=== PATIENT | female | born 1960 | race Caucasian/White ===

== ENCOUNTER 2020-06-25 09:45 | Outpatient (RCR) | payer BC ==
[2021-03-03] MEDS ORDERED: WELLBUTRIN SR150 M1 PO (16:05)
[2021-03-03] MEDS ORDERED: FOSAMAX 70MG TA70 MG PO (16:06)
== END 2020-09-11 | disposition home or self-care (01) ==
LOC: WSST
DX: C32.1 Malignant neoplasm of supraglottis (principal)

== ENCOUNTER → 2021-03-06 | Outpatient (CLI) | payer BC ==
[2021-03-06] VITALS (11 sets, daily range): BP systolic 104–150; BP diastolic 73–86; PULSE 83–90; TEMP 98.3
[~2021-03-06] VITALS: Ht 157.5 cm; Wt 55.6 kg
[~2021-03-06] MED LIST: FOSAMAX 70MG TA70 MG PO; WELLBUTRIN SR150 M1 PO
--- NOTE | 2021-03-06 14:20 | NUR ---
Pt to ct per ambulation. Pt on table in prone postion, monitors applied.
--- NOTE | 2021-03-06 14:48 | NUR ---
Dr Hermosillo obtains specimen and places in formalin. Specimen labeled.
== END ==
LOC: COL.RAD 13:00
DX: C32.1 Malignant neoplasm of supraglottis (principal)

== ENCOUNTER 2023-12-26 18:50 | Inpatient (IN) | payer MEDICARE, MEDICAID ==
[~2023-12-26] VITALS: Ht 157.5 cm; Wt 52.3 kg
--- NOTE | 2023-12-26 | NUR ---
Patient to room 317 via stretcher from ED. Oriented to room and policy. Admission assessment complete. VS stable. Patient is very drowsy but oriented. Noted to be 89% on RA-O2 applied @2L/NC with O2 sats to 94%. Left Wrist INT flushes without difficulty-LR@125ml/hr infusing without difficulty. Nicotine patch to left arm. Fentanyl patch to abdomen. Plan of care discussed for this shift to include meds/pain control/calling for questions/concerns. Verbalizes understanding. Call light in reach. Bed alarm on. WIll monitor.
[~2023-12-26 18:50] MED LIST changes: +BENADRYL25 M2 PO; +MAGNESIUM200 MG PO; +OSCAL 500 TAB500 MG PO; +PROAIR HFA0.09 MG/AC IH; +TUMERIC PO; +VITAMIN B COMPL1 T16 PO; +VITAMIN C500 MG PO; +VITAMIN K PO; +WELLBUTRIN XL150 MG PO
[2023-12-26] MEDS ORDERED: NS 500 ML IV ONE ×2 (19:30→20:45)
[2023-12-26] MEDS ORDERED: Acetaminophen 325 MG TAB PO ONE (19:30)
[2023-12-26 19:58] LABS: BASO % 0.2 % (0.0-2.0); EOS % 0.1 % (0.0-4.0); GRAN # 12.9 K/mm3 (1.4-6.5); GRAN % 74.7 % (42.2-75.2); LYMPH # 2.9 K/mm3 (1.2-3.4); LYMPH % 16.8 % (20.0-51.0); MEAN CELL VOLUME 100 fl (80.0-100.0); MEAN CORPUSCULAR HGB CONC 33 g/dl (33.0-37.0); MEAN PLATELET VOLUME 8.9 fl (7.4-10.4); MONO # 1.3 K/mm3 (0.1-0.6); MONO % 7.2 % (1.7-9.3); PLATELET COUNT 313 K/mm3 (130-400); REDCELL DISTRIBUTION WIDTH-CV 14.7 % (11.5-14.5)
[2023-12-26 19:59] LABS: HEMATOCRIT 27.1 % (37.0-47.0); HEMOGLOBIN 8.8 g/dl (12.5-16.0); MEAN CORPUSCULAR HEMOGLOBIN 33 pg (27-31)
[2023-12-26 20:14] LABS: ALANINE AMINOTRANSFERASE 18 U/L (0-55); ALBUMIN 3.1 g/dL (3.4-4.8); ALKALINE PHOSPHATASE 104 U/L (40-150); ANION GAP 10 mmol/L (7-16); AST,SGOT 44 U/L (5-34); BILIRUBIN,TOTAL 0.6 mg/dL (0.2-1.2); BLOOD UREA NITROGEN 12 mg/dL (10-20); C-REACTIVE PROTEIN 9.59 mg/dL (0.00-0.50); CHLORIDE 97 mEq/L (98-107); CREATININE, serum 0.72 mg/dL (0.57-1.11); GLUCOSE 132 mg/dL (70-99); POTASSIUM 4.2 mEq/L (3.5-4.5); SODIUM 130 mEq/L (136-145); TOTAL PROTEIN 6.7 g/dl (6.2-8.1)
[2023-12-26 20:22] LABS: TROPONIN-I < 0.010 ng/mL (0.00-0.033)
[2023-12-26 20:33] LABS: COLLECTION METHOD CLEAN CATCH
[2023-12-26 20:52] LABS: PH 6.5 (5.0-8.5); URINE APPEARANCE Cloudy (CLEAR/HAZY); URINE COLOR Amber (YELLOW); URINE PROTEIN(semi-quant) TRACE (NEGATIVE)
[2023-12-26 20:53] LABS: URINE BLOOD Negative (NEGATIVE); URINE GLUCOSE Negative (NEGATIVE); URINE KETONE 1+ (NEGATIVE); URINE NITRATE Negative (NEGATIVE)
--- NOTE | 2023-12-26 21:57 | NUR ---
Patient refused shower/teeth brush at HS.
[2023-12-26] MEDS ORDERED: LR 1,000 ML IV SCH (22:00)
[2023-12-26] MEDS ORDERED: Acetaminophen 325 MG TAB PO PRN (22:00)
[2023-12-26] MEDS ORDERED: FENTANYL 75MCG TD (22:14)
[2023-12-26] MEDS ORDERED: DAZIDOX10 MG PO (22:14)
[2023-12-26] MEDS ORDERED: ATIVAN 0.50.5 MG/TAB PO (22:15)
[2023-12-26] MEDS ORDERED: DAPSONE 100MG100 MG PO (22:15)
[2023-12-26] MEDS ORDERED: PROTONIX 40MG T40 MG PO (22:16)
[2023-12-26] MEDS ORDERED: ZOVIRAX800 MG PO (22:16)
[2023-12-26] MEDS ORDERED: LASIX 20MG TABL20 MG PO (22:18)
[2023-12-26] MEDS ORDERED: SYNTHROID0.088 MG/T PO (22:18)
[2023-12-26] MEDS ORDERED: CYMBALTA 60MG60 MG PO (22:19)
[2023-12-26] MEDS ORDERED: NICODERM C21 MG/PATC TD (22:20)
[2023-12-26] MEDS ORDERED: PROAIR HFA0.09 MG/AC IH (22:20)
[2023-12-26] MEDS ORDERED: 00186-0370-20 IH (22:21)
[2023-12-26] MEDS ORDERED: Albuterol 0.083% Neb Soln 2.5 MG/3 ML UD IH PRN ×2 (22:30)
[2023-12-26] MEDS ORDERED: diphenhydrAMINE 25 MG CAP PO PRN (22:30)
[2023-12-26] MEDS ORDERED: oxyCODONE 5 MG TAB PO PRN (22:30)
[2023-12-26] MEDS ORDERED: LORazepam 0.5 MG TAB PO PRN (22:30)
[2023-12-26] MEDS ORDERED: Iohexol 350 - 100 ML VIAL IV ONE (23:43)
[2023-12-26] MEDS ORDERED: NS 64 ML IV SCH (23:43)
[2023-12-27] VITALS (9 sets, daily range): BP systolic 90–101; BP diastolic 51–70; PULSE 62–100; TEMP 98–98.2
[2023-12-27] MEDS ORDERED: Albuterol/Ipratropium 3 MG-0.5 MG/3 ML Neb Soln IH PRN (00:15)
--- NOTE | 2023-12-27 00:56 | NUR ---
Vancomycin Initial Dosing Pharmacy Note Ordering provider: Valentine Burk MD Indication/duration: Pneumonia and UTI x 5 days Relevant comorbidities: COPD, Multiple myeloma LABS: WBC = 17.3, SCr = 0.72 Recommendation: Will draw troughs and follow levels. Loading dose: 1 gram Maintenance dose: 750 mg every 12 hours Trough goal: 15-20 ug/mL
--- NOTE | 2023-12-27 01:04 | NUR ---
Med rec completed-patient unaware of what medications she takes but gave permission for this nurse to call Roslyn-daughter for updating. Spoke with Roslyn via phone and [employer] rec updated.
[2023-12-27] MEDS ORDERED: Albuterol/Ipratropium 3 MG-0.5 MG/3 ML Neb Soln IH SCH (02:00)
[2023-12-27 06:50] LABS: BASO % 0.2 % (0.0-2.0); EOS # 0.5 K/mm3 (0.0-0.7); EOS % 4.6 % (0.0-4.0); GRAN # 7.7 K/mm3 (1.4-6.5); LYMPH # 2.3 K/mm3 (1.2-3.4); LYMPH % 19.5 % (20.0-51.0); MEAN CELL VOLUME 101 fl (80.0-100.0); MEAN CORPUSCULAR HGB CONC 32 g/dl (33.0-37.0); MONO % 8.4 % (1.7-9.3); PLATELET COUNT 262 K/mm3 (130-400); RED BLOOD COUNT 2.32 M/mm3 (4.10-5.30); REDCELL DISTRIBUTION WIDTH-CV 14.8 % (11.5-14.5)
[2023-12-27 06:55] LABS: HEMATOCRIT 23.4 % (37.0-47.0); HEMOGLOBIN 7.4 g/dl (12.5-16.0); MEAN CORPUSCULAR HEMOGLOBIN 32 pg (27-31)
--- NOTE | 2023-12-27 06:59 | NUR ---
RA SPO2 85%. PLACED ON 1 LPM NC 90% INCREASED TO 2 LPM NC. RN NOTIFIED
[2023-12-27] MEDS ORDERED: Formoterol 20 MCG,Budesonide 0.5 MG IH SCH (07:00)
--- NOTE | 2023-12-27 07:00 | NUR ---
THIS NURSE VERIFIED PLACEMENT OF 75 MCG FENTANYL PATCH DURIG SHIFT REPORT WITH HERMILA RN AND RAMIRO VIDES. [address] ON THE LEFT UPPER ARM. THIS NURSE REMOVED ONE NICOTINE PATCH AND LEFT ONE NICOTINE PATCH IN PLACE.
[2023-12-27 07:15] LABS: CALCIUM 8.2 mg/dL (8.4-10.2); CREATININE, serum 0.6 mg/dL (0.57-1.11); POTASSIUM 3.5 mEq/L (3.5-4.5)
--- NOTE | 2023-12-27 08:00 | NUR ---
PT AWAKE AND RESTING IN BED UPON ENTERING ROOM. SCHEDULED MEDS GIVEN PER eMAR. 75MCG FENTANYL PATCH ON LEFT SIDE OF ABDOMEN. HOME DOSE REVIEWED. REMOVED NICOTINE PATCH FROM LEFT UPPER ARM. APPLIED 21MG NICOTINE PATCH TO RIGHT UPPER ARM. NO OTHER PATCHES VISIBLE ON BLE, BUE, TRUNK, OR BACK. NO VISIBLE SKIN ISSUES. 2L O2 VIA NC. L WRIST IV SITE PATENT AND CDI.
[2023-12-27] MEDS ORDERED: Nicotine 21 MG DAILY PATCH TD SCH (09:00)
[2023-12-27] MEDS ORDERED: DULoxetine 60 MG CAP PO SCH (09:00)
--- NOTE | 2023-12-27 12:09 | NUR ---
THIS NURSE SPOKE TO PT'S DAUGHTER, HUNTER, AT BEDSIDE. GAVE UPDATE REGARDING CONDITION AND PLAN FOR DISCHARGE. HUNTER INFORMED THIS NURSE THAT PT IS NOT 100 DAYS OUT FROM BONE MARROW TRANSPLANT. STAFF TO IMPLEMENT NEUTROPENIC PRECAUTIONS.
[2023-12-27] MEDS ORDERED: ZOFRAN ODT8 MG PO (13:37)
[2023-12-27] MEDS ORDERED: Ondansetron 4 MG/2 ML VIAL IV PRN (13:45)
--- NOTE | 2023-12-27 13:45 | NUR ---
PT CALLED AND REPORTS VOMITING. UPON ENTERING SMALL AMOUNT OF EMESIS NOTED ON SHEET, LINEN CHANGED. PT REPORTS TAKING ZOFRAN EVERY MORNING AT HOME FOR NAUSEA, MED RED UPDATED. PTS DAUGHTER NOTIFYING THIS NURSE THAT PT HAS AN EGD PLANNED LATER THIS MONTH AND ASKING IF SHE CAN GET IT DONE HERE IN THE HOSPITAL. DR MAGAÑA NOTIFIED AND TOLD THIS NURSE AN ORDER FOR IV ZOFRAN WILL BE PLACED AND NO EGD WILL BE DONE TO PRIORITIZE TREATING INFECTION, THIS NURSE VERBALIZED UNDERSTANDING.
--- NOTE | 2023-12-27 15:07 | NUR ---
SW met with patient and daughter/DPARUN Manisha Urrutia (Dee) ([phone]). Patient resting with eyes closed, daughter provided information. Patient lives in [facility] alone, is independent and able to care for herself. Patient sees Elvira NOGUEIRA in [place] as her PCP. Patient uses [facility] in [place]. Daughter reports patient does not use any DME. Daughter shared that patient's last chemo treatment was November 09 and patient had a bone marrow transplant on November 10. Daughter asked about getting listed as patient's caregiver through her insurance. SW provided list of caregiving options and contact information for Jacky Arriaga to inquire about status of daughter's application for caregiving. Patient plans to return to home with daughter staying with her at discharge, Discharge plan: Home
--- NOTE | 2023-12-27 16:14 | NUR ---
PT DENIES NAUSEA AT THIS TIME
[2023-12-27] MEDS ORDERED: COMPAZINE 110 MG/TAB PO (16:25)
--- NOTE | 2023-12-27 16:29 | NUR ---
PT C/O NAUSEA. PT INFORMED THIS NURSE THAT SHE TAKES ORAL COMPAZINE AT HOME THAT SHE ALTERNATES WITH ZOFRAN. PT REQUESTS COMPAZINE. THIS NURSE INFORMED PROVIDER OF HOME MEDS. PROVIDER AGREED TO COMPAZINE 4MG ORAL ONCE. TELEPHONE ORDER READ BACK.
[2023-12-27] MEDS ORDERED: Prochlorperazine 10 MG TAB PO PRN (16:45)
--- NOTE | 2023-12-27 19:45 | NUR ---
TWO NURSE VERIFICATION OF FENTANYL PATCH 75 MCG ON ABDOMEN AND RT UPPER ARM NICOTINE PATCH 21MG.
--- NOTE | 2023-12-27 20:30 | NUR ---
UPON SHIFT ASSESSMENT, PATIENT WAS AWAKE IN BED AND AXO X4. VS ARE CURRENTLY STABLE AND MELODY DENIES PAIN AT THIS TIME. NEUTROPENIC PRECAUTIONS IN PLACE. PATIENT STATES NO DYSURIA AND URINE IS YELLOW AND CLEAR. STATES NO NEEDS AT THIS TIME AND CALL LIGHT WITHIN REACH.
[2023-12-28] VITALS (7 sets, daily range): BP systolic 96–118; BP diastolic 64–69; PULSE 102–111; TEMP 97.7–98.5
--- NOTE | 2023-12-28 01:15 | NUR ---
PATIENT C/O OF 7/10 SPINAL AND HIP PAIN. PRN 10MG DANA GIVEN. PATIENT BPs CHRONICALLY SOFT MAP WNL-69. VS ARE WNL.
--- NOTE | 2023-12-28 05:24 | NUR ---
MEWS SCORE 4, CHARGE NURSE ALERTED. PATIENT AXO X 4, URINATING AND DENIES PAIN. WILL REASSESS IN 45MINUTES.
--- NOTE | 2023-12-28 05:59 | NUR ---
VITALS RECHECK-SEE FLOWCHART-MEWS SCORE NOW 2, DOWN FROM 4.
[2023-12-28 06:27] LABS: BASO % 0.3 % (0.0-2.0); EOS # 0.7 K/mm3 (0.0-0.7); EOS % 10.2 % (0.0-4.0); GRAN # 3.9 K/mm3 (1.4-6.5); GRAN % 56.3 % (42.2-75.2); LYMPH # 1.7 K/mm3 (1.2-3.4); LYMPH % 24.4 % (20.0-51.0); MEAN CELL VOLUME 101 fl (80.0-100.0); MEAN CORPUSCULAR HGB CONC 32 g/dl (33.0-37.0); MEAN PLATELET VOLUME 9.1 fl (7.4-10.4); MONO # 0.6 K/mm3 (0.1-0.6); MONO % 8.5 % (1.7-9.3); PLATELET COUNT 321 K/mm3 (130-400); RED BLOOD COUNT 2.41 M/mm3 (4.10-5.30); REDCELL DISTRIBUTION WIDTH-CV 14.8 % (11.5-14.5)
[2023-12-28 06:35] LABS: HEMATOCRIT 24.4 % (37.0-47.0); HEMOGLOBIN 7.7 g/dl (12.5-16.0); MEAN CORPUSCULAR HEMOGLOBIN 32 pg (27-31)
--- NOTE | 2023-12-28 06:48 | NUR ---
PT RESTING IN BED. PT IS IN NEUTROPENIC PRECAUTIONS IN PLACE. PT IS SLEEPY BUT ORIENTED. PT IS ON 2L NC. PT HAS CALL LIGHT AND INSTRUCTED TO CALL WITH ALL NEEDS.
[2023-12-28 06:49] LABS: ANION GAP 8 mmol/L (7-16); CALCIUM 8.5 mg/dL (8.4-10.2); CHLORIDE 105 mEq/L (98-107); CREATININE, serum 0.61 mg/dL (0.57-1.11); GLUCOSE 77 mg/dL (70-99); POTASSIUM 3.7 mEq/L (3.5-4.5); SODIUM 137 mEq/L (136-145)
[2023-12-28 06:57] LABS: BLOOD UREA NITROGEN < 5 mg/dL (10-20)
[2023-12-28] MEDS ORDERED: FENTANYL 75 MCG TD SCH (09:00)
[2023-12-28] MEDS ORDERED: fentaNYL Patch Removal/Drugbuster TD SCH (09:00)
--- NOTE | 2023-12-28 10:52 | NUR ---
forest nursery worker attended clinical rounding and was informed pt will need an ex-ox order to see if she needs oxygen prior to discharge. TAMIR completed documents and MIRLANDE Rios signed. She confirms pt is eager to discharge today. TAMIR met with pt who was aware of the need for oxygen. She had no preference for another DME company and was agreeable to [facility] and bringing the O2 to her room. She reports she is ready to go home. TAMIR advised from her end, she has to wait for the oxygen to be delivered prior to leaving. She verbalized understanding of this need. TAMIR informed RAMIRO Meng of pt needing oxygen. Discharge Plan: home with oxygen
[2023-12-28] MEDS ORDERED: LEVAQUIN 750MG750 M1 PO (11:04)
[2023-12-28] MEDS ORDERED: MAGNESIUM250 M1 PO (11:09)
[2023-12-28] MEDS ORDERED: OXYGEN NASAL.CANN (11:13)
--- NOTE | 2023-12-28 12:19 | NUR ---
DISCHARGE INSTRUCTIONS DISCUSSED WITH PT. ALL QUESTIONS ANSWERED. IV REMOVED. DAUGHTER WENT TO LAW OFFICE RECEPTIONIST OXYGEN FROM [employer] SUPPLY. PT INSTRUCTED TO CALL WHEN HER DAUGHTER IS BACK FOR DISCHARGE.
--- NOTE | 2023-12-28 13:03 | NUR ---
SW was informed pt's daughter would like to orange picker the oxygen to expediate discharge. TAMIR confirmed with [facility] who okayed this. TAMIR informed RAMIRO Meng of the above and later was ready at 12:30pm. Discharge Plan: home with O2
--- NOTE | 2023-12-28 13:12 | NUR ---
1250-PT WHEELED OUT FOR DISCHARGE BY PCT. DAUGHTER HAS BROUGHT HER OXYGEN FROM SUPPLY.
== END 2023-12-28 12:50 | disposition home or self-care (01) | DRG 871 ==
LOC: COL.ER 18:50 → MEDICAL 21:54
PROVIDERS: Emergency Medicine; Nurse Practitioner Family; ADMIT Internal Medicine
DX: A41.9 Sepsis, unspecified organism (principal); J96.01 Acute respiratory failure with hypoxia; D84.9 Immunodeficiency, unspecified; C90.00 Multiple myeloma not having achieved remission; E87.1 Hypo-osmolality and hyponatremia; R07.89 Other chest pain; R60.9 Edema, unspecified; J44.9 Chronic obstructive pulmonary disease, unspecified; Z72.0 Tobacco use; C10.9 Malignant neoplasm of oropharynx, unspecified; E03.9 Hypothyroidism, unspecified; D64.9 Anemia, unspecified; G89.29 Other chronic pain; G62.9 Polyneuropathy, unspecified; R53.1 Weakness; R53.81 Other malaise
CPT/HCPCS: J1650; J2405; J2543; J3370; J7040; J7050; J7120; Q9967